=== PATIENT | male | born 2000 | race Caucasian/White ===

== ENCOUNTER → 2018-03-23 | Outpatient (CLI) | payer BC ==
--- NOTE | 2018-03-24 07:04 | US ---
EXAMINATION TYPE: US kidneys/renal and bladder DATE OF EXAM: 03/23/2018 COMPARISON: NONE CLINICAL HISTORY: Hematuria R31.9. Hematuria, back pain, abdomen discomfort. EXAM MEASUREMENTS: Right Kidney: 9.5 x 4.3 x 5.4 cm Left Kidney: 10.2 x 5.6 x 4.4 cm Right Kidney: Minimal pelviectasis. No leonard hydronephrosis. Left Kidney: visualized portions wnl, limited by rib shadowing Bladder: wnl Bilateral Jets seen: yes There is no evidence for hydronephrosis at this point in time. No nephrolithiasis is seen. No julio s are identified. The urinary bladder is anechoic. Bilateral ureteral jets are seen. IMPRESSION: No hydronephrosis or nephrolithiasis. No focal renal mass.
== END | disposition home or self-care (01) ==
LOC: RADUSMAIN 15:36
PROVIDERS: ATTEND Nurse Practitioner Family
DX: R31.9 Hematuria, unspecified (principal)
CPT/HCPCS: 76770